=== PATIENT | male | born 1975 | race African-American/Black ===

== ENCOUNTER 2016-11-28 23:01 | Emergency (ER) | payer SELFPAY ==
[~2016-11-28] VITALS: Ht 188 cm; Wt 117.9 kg
--- NOTE | 2016-11-28 23:07 | PHYS DOC ---
Adult General Chief Complaint Chief Complaint: INSECT BITE HPI HPI Patient is a 41 year old -[place] male who presents with with complaints. States he gets stung by bees 2 days ago on 3 different spots one on his left ankle left elbow left back. He states today became nauseated and started around 11 AM he's vomited 4 times and felt like he had fevers and chills. He denies any constipation diarrhea, dysuria. He does smoke cigarettes and has been coughing up some white sputum. He denies any shortness of breath. He also complains about scratchy sore throat. He denies any changes in his voice or trismus. He does admit smoking one pack per day for the last 20 years. According to his josy when the area from bed he was having a fever so she gave him Benadryl for his bee stings and some Advil. This is approximately one hour ago they receive these meds. Review of Systems Review of Systems Constitutional: Denies fever or chills [] Eyes: Denies change in visual acuity, redness, or eye pain [] HENT: Denies nasal congestion or sore throat [] Respiratory: Denies cough or shortness of breath [] Cardiovascular: No additional information not addressed in HPI [] GI: Denies abdominal pain, , bloody stools or diarrhea, positive for nausea, vomiting : Denies dysuria or hematuria [] Musculoskeletal: Denies back pain or joint pain [] Integument: Denies rash or skin lesions [] Neurologic: Denies headache, focal weakness or sensory changes [] Endocrine: Denies polyuria or polydipsia [] Current Medications Current Medications Current Medications Medications (Trade) Dose Ordered Sig/Daquan Start Time Stop Time Status Last Admin Dose Admin Acetaminophen (Tylenol) 1,000 mg 1X ONCE 11/29/16 00:00 11/29/16 00:01 UNV Ondansetron HCl (Zofran) 4 mg 1X ONCE 11/28/16 23:45 11/28/16 23:46 DC Sodium Chloride 1,000 ml @ 1,000 mls/hr 1X ONCE 11/29/16 00:15 11/29/16 00:15 DC Allergies Allergies Physical Exam Physical Exam Constitutional: Well developed, well nourished, no acute distress, non-toxic appearance. [] HENT: Normocephalic, atraumatic, bilateral external ears normal, oropharynx moist, no oral exudates, nose normal. [] Eyes: PERRLA, EOMI, conjunctiva normal, no discharge. [] Neck: Normal range of motion, no tenderness, supple, no stridor. [] Cardiovascular:Heart rate regular rhythm, no murmur [] Lungs & Thorax: Bilateral breath sounds clear to auscultation [] Abdomen: Bowel sounds normal, soft, no tenderness, no masses, no pulsatile masses. [] Skin: Warm, dry, no erythema, 2 cm erythematous area from bee sting on his left medial ankle, left lateral elbow, left posterior chest wall Back: No tenderness, no CVA tenderness. [] Extremities: No tenderness, no cyanosis, no clubbing, ROM intact, no edema. [] Neurologic: Alert and oriented X 3, normal motor function, normal sensory function, no focal deficits noted. [] Psychologic: Affect normal, judgement normal, mood normal. [] Current Patient Data Vital Signs Vital Signs Date Time Temp Pulse Resp B/P (MAP) Pulse Ox O2 Delivery O2 Flow Rate FiO2 11/28/16 23:17 100.2 130 22 159/100 (119) 97 Room Air 100.2 Lab Values Laboratory Tests Test 11/28/16 11:59 11/29/16 00:25 White Blood Count 11.3 x10^3/uL (4.0-11.0) H Red Blood Count 5.12 x10^6/uL (4.30-5.70) Hemoglobin 15.0 g/dL (13.0-17.5) Hematocrit 45.6 % (39.0-53.0) Mean Corpuscular Volume 89 fL (79-100) Mean Corpuscular Hemoglobin 29 pg (25-35) Mean Corpuscular Hemoglobin Concent 33 g/dL (31-37) Red Cell Distribution Width 13.4 % (11.5-14.5) Platelet Count 213 x10^3/uL (140-400) Neutrophils (%) (Auto) 85 % (31-73) H Lymphocytes (%) (Auto) 6 % (24-48) L Monocytes (%) (Auto) 7 % (0-9) Eosinophils (%) (Auto) 3 % (0-3) Basophils (%) (Auto) 0 % (0-3) Neutrophils # (Auto) 9.5 x10^3uL (1.8-7.7) H Lymphocytes # (Auto) 0.6 x10^3/uL (1.0-4.8) L Monocytes # (Auto) 0.8 x10^3/uL (0.0-1.1) Eosinophils # (Auto) 0.3 x10^3/uL (0.0-0.7) Basophils # (Auto) 0.0 x10^3/uL (0.0-0.2) Prothrombin Time 11.8 SEC (11.7-14.0) Prothrombin Time INR 0.9 (0.8-1.1) Sodium Level 139 mmol/L (136-145) Potassium Level 4.1 mmol/L (3.5-5.1) Chloride Level 102 mmol/L (98-107) Carbon Dioxide Level 29 mmol/L (21-32) Anion Gap 8 (6-14) Blood Urea Nitrogen 12 mg/dL (8-26) Creatinine 1.2 mg/dL (0.7-1.3) Estimated GFR (Cockcroft-Gault) 81.1 Glucose Level 102 mg/dL (70-99) H Calcium Level 9.2 mg/dL (8.5-10.1) Magnesium Level 1.7 mg/dL (1.8-2.4) L Total Bilirubin 0.6 mg/dL (0.2-1.0) Direct Bilirubin 0.1 mg/dL (0.0-0.2) Aspartate Amino Transferase (AST) 26 U/L (15-37) Alanine Aminotransferase (ALT) 40 U/L (16-63) Alkaline Phosphatase 86 U/L (46-116) Creatine Kinase 474 U/L (39-308) H Creatine Kinase MB (Mass) 1.8 ng/mL (0.0-3.6) Creatine Kinase MB Relative Index 0.4 % (0-4) KO-Fpm-U-Type Natriuretic Peptide 19 pg/mL (0-124) Total Protein 7.5 g/dL (6.4-8.2) Albumin 4.0 g/dL (3.4-5.0) Lipase 89 U/L (73-393) Urine Collection Type Unknown Urine Color Yellow Urine Clarity Clear Urine pH 7.5 Urine Specific Campbell <=1.005 Urine Protein Negative mg/dL (NEG-TRACE) Urine Glucose (UA) Negative mg/dL (NEG) Urine Ketones (Stick) Negative mg/dL (NEG) Urine Blood Negative (NEG) Urine Nitrite Negative (NEG) Urine Bilirubin Negative (NEG) Urine Urobilinogen Dipstick 0.2 mg/dL (0.2 mg/dL) Urine Leukocyte Esterase Negative (NEG) Urine RBC 0 /HPF (0-2) Urine WBC 0 /HPF (0-4) Urine Squamous Epithelial Cells None /LPF Urine Bacteria 0 /HPF (0-FEW) Urine Mucus Slight /LPF Urine Opiates Screen Neg (NEG) Urine Methadone Screen Neg (NEG) Urine Barbiturates Neg (NEG) Urine Phencyclidine Screen Pos (NEG) Urine Amphetamine/Methamphetamine Neg (NEG) Urine Benzodiazepines Screen Neg (NEG) Urine Cocaine Screen Neg (NEG) Urine Cannabinoids Screen Pos (NEG) Urine Ethyl Alcohol Neg (NEG) Laboratory Tests 11/28/16 11:59 Laboratory Tests 11/28/16 11:59 EKG EKG [] Radiology/Procedures Radiology/Procedures View chest x-ray did not show any focal consolidations, bony abnormalities, pneumothorax, as interpreted by me. Impressions: Fever PCP abuse Marijuana abuse Course & Med Decision Making Course & Med Decision Making Pertinent Labs and Imaging studies reviewed. (See chart for details) Upon arrival patient's initial labs show pulse of 130 however when I examined him his heart rate was 97. His strep throat negative, labs do not show any acute abnormalities. Urine is also negative except for his urine drug screen which is positive for marijuana and PCP. He likely has a viral syndrome or bronchitis however with his vomiting is likely more viral. We'll send home with Zofran and this is having some sputum production will also send a Z-Dion. Return precautions given. He is agreeable plan is being discharged in stable condition this time. Dragon Disclaimer Dragon Disclaimer This electronic medical record was generated, in whole or in part, using a voice recognition dictation system. Departure Departure Impression: Primary Impression: Nausea & vomiting Disposition: 01 HOME, SELF-CARE Patient Instructions: Fever, Adult Additional Instructions: Your fever improved with Tylenol. This is likely a virus. Your chest x-ray did not show any signs of infection, your strep throat was negative. Your being discharged home and can take azithromycin for the next 5 days. Please follow instructions on the prescription. He can also take Zofran which is an oral dissolvable tablet of the medicine no help control your nausea. You should follow-up with primary care physician within the next week. Return ER if you have uncontrolled fevers, shortness of breath, uncontrolled nausea vomiting or other concerns. Can take Tylenol as instructed on the bottle for fevers. Scripts Ondansetron (ZOFRAN ODT) 4 Mg Tab.rapdis 1 TAB SL Q8HRS, #8 TAB Prov: GOMEZ PRIETO MD 11/29/16 Azithromycin (AZITHROMYCIN TABLET) 250 Mg Tablet 1 PKG PO UD, #6 TAB Prov: GOMEZ PRIETO MD 11/29/16 Problem Qualifiers Primary Impression: Nausea & vomiting Vomiting type: unspecified Vomiting Intractability: non-intractable Qualified Codes: R11.2 - Nausea with vomiting, unspecified GOMEZ PRIETO MD Nov 28, 2016 23:07
[2016-11-28 23:17] VITALS: BP 159/100
[2016-11-28] MEDS ORDERED: IV NORMAL SALINE 1000ML BAG 1,000 ML IV ONE (23:45)
[2016-11-28] MEDS ORDERED: ONDANSETRON PF 4 MG/2 ML VIAL. IV ONE (23:45)
[2016-11-29 00:06] LABS: BASO % 0 % (0-3); EOS % 3 % (0-3); HEMATOCRIT 45.6 % (39.0-53.0); LYMPH # 0.6 x10^3/uL (1.0-4.8); LYMPH % 6 % (24-48); MEAN CORPUSCULAR HEMOGLOBIN 29 pg (25-35); MEAN CORPUSCULAR HGB CONC 33 g/dL (31-37); MEAN CORPUSCULAR VOLUME 89 fL (79-100); MONO % 7 % (0-9); NEUT % 85 % (31-73); PLATELET COUNT 213 x10^3/uL (140-400); RED BLOOD COUNT 5.12 x10^6/uL (4.30-5.70); RED CELL DISTRIBUTION WIDTH 13.4 % (11.5-14.5); WHITE BLOOD COUNT 11.3 x10^3/uL (4.0-11.0)
[2016-11-29 00:12] LABS: INR 0.9 (0.8-1.1); PROTHROMBIN TIME PATIENT 11.8 SEC (11.7-14.0)
[2016-11-29 00:14] LABS: CALCIUM 9.2 mg/dL (8.5-10.1); CREATININE 1.2 mg/dL (0.7-1.3); GFR 81.1; POTASSIUM 4.1 mmol/L (3.5-5.1)
[2016-11-29] MEDS ORDERED: IV NORMAL SALINE 1000ML BAG 1,000 ML IV ONE (00:15)
[2016-11-29 00:20] LABS: DIRECT BILIRUBIN 0.1 mg/dL (0.0-0.2); MAGNESIUM 1.7 mg/dL (1.8-2.4); TOTAL BILIRUBIN 0.6 mg/dL (0.2-1.0); TOTAL PROTEIN 7.5 g/dL (6.4-8.2)
[2016-11-29] MEDS ORDERED: AZIT250T6 PO (00:24)
[2016-11-29 00:29] LABS: CKMB MASS 1.8 ng/mL (0.0-3.6)
[2016-11-29 00:35] LABS: BILIRUBIN,URINE NEGATIVE (NEG); GLUCOSE,URINE NEGATIVE (NEG); NITRITE,URINE NEGATIVE (NEG); PH,URINE 7.5; PROTEIN,URINE NEGATIVE (NEG-TRACE); UROBILINOGEN,URINE 0.2 mg/dL (0.2 mg/dL)
[2016-11-29 00:40] LABS: BACTERIA,URINE 0 /HPF (0-FEW); BARBITURATES NEG (NEG); BENZODIAZEPINES NEG (NEG); CANNABINOIDS POS (NEG); COCAINE NEG (NEG); METHADONE NEG (NEG); OPIATES NEG (NEG); PHENCYCLIDINE POS (NEG); RBC,URINE 0 /HPF (0-2); WBC,URINE 0 /HPF (0-4)
[2016-11-29] MEDS ORDERED: ONDA4TAB10 SL (00:42)
[2016-11-29] MEDS ORDERED: ACETAMINOPHEN 500 MG TABLET PO ONE (01:00)
--- NOTE | 2016-11-29 07:21 | RAD ---
Exam performed: One view chest. Indication: fever Date of Service: 11/29/2016 1:22 AM Comparison: None available. Single AP upright portable view chest findings: Cardiomediastinal silhouette is within limits of normal. No acute infiltrates, effusion or pneumothorax is detected. The bony structures are normal. Impression: No acute cardiopulmonary process is detected.
[2016-11-29 09:19] LABS: NEGATIVE OBC STREP NEG; POSITIVE OBC STREP POS
== END 2016-11-29 01:18 | disposition home or self-care (01) ==
LOC: ER 23:01
DX: R11.2 Nausea with vomiting, unspecified (principal); J02.9 Acute pharyngitis, unspecified; F17.210 Nicotine dependence, cigarettes, uncomplicated; F12.10 Cannabis abuse, uncomplicated; F16.10 Hallucinogen abuse, uncomplicated
CPT/HCPCS: 36415; 71010; 80048; 80076; 80307; 81001; 82553; 83690; 83735; 83880; 85025; 85610; 87070; 87880; 96361; 96374; 99285; J2405; J7030; G0479

== ENCOUNTER 2018-01-12 17:33 | Emergency (ER) | payer SELFPAY ==
[~2018-01-12] VITALS: Ht 188 cm; Wt 65.8 kg
[~2018-01-12 17:33] MED LIST: AZIT250T6 PO; ONDA4TAB10 SL
[2018-01-12 17:37] VITALS: BP 174/105
[2018-01-12] MEDS ORDERED: HYDROcodone/APAP 5/325MG 1 TAB TABLET PO ONE (17:45)
[2018-01-12] MEDS ORDERED: MORPHINE SULFATE 10 MG/ML VIAL. IM ONE (18:30)
--- NOTE | 2018-01-12 18:30 | PHYS DOC ---
Past Medical History Past Medical History: Hypertension Past Surgical History: Other Additional Past Surgical Histo: LEFT LCL Alcohol Use: Occasionally Drug Use: Marijuana Social History Narrative: PCP Adult General Chief Complaint Chief Complaint: WRIST PAIN HPI HPI Patient is a 42 year old male with history of hypertension who presents today complaining of 10 out of 10 left wrist pain that began yesterday after he fell off a 4 ft truck loading zone. Patient denies any loss of consciousness, denies hitting his head on the ground. States his pain is worse on range of motion. He is right handed. Review of Systems Review of Systems Constitutional: Denies fever or chills [] Musculoskeletal: Reports left wrist pain Integument: Denies rash or skin lesions [] Neurologic: Denies headache, focal weakness or sensory changes [] All other systems were reviewed and found to be within normal limits, except as documented in this note. Current Medications Current Medications Current Medications Medications (Trade) Dose Ordered Sig/Daquan Start Time Stop Time Status Last Admin Dose Admin Acetaminophen/ Hydrocodone Bitart (Lortab 5/325) 2 tab 1X ONCE 01/12/18 17:45 01/12/18 17:46 DC 01/12/18 18:06 2 TAB Morphine Sulfate (Morphine Sulfate) 5 mg 1X ONCE 01/12/18 18:30 01/12/18 18:32 DC 01/12/18 18:41 5 MG Allergies Allergies Allergies Coded Allergies Type Severity Reaction Last Updated Verified No Known Drug Allergies 11/29/16 No Physical Exam Physical Exam Constitutional: Well developed, well nourished, no acute distress, non-toxic appearance. [] Skin: Warm, dry, no erythema, no rash. [] Back: No tenderness, no CVA tenderness. [] Extremities: Left wrist appears obviously deformed. Moderate soft tissue swelling noted around the wrist. Tenderness throughout to the ventral aspect of the wrist. Full range of motion to the left fingers. Limited range of motion to the left wrist due to pain. Adequate radial, medial, ulnar sensation to the left upper extremity. +2 left radial pulse. Cap refill less than 2 seconds and left fingers. Neurologic: Alert and oriented X 3, normal motor function, normal sensory function, no focal deficits noted. [] Psychologic: Affect normal, judgement normal, mood normal. [] Current Patient Data Vital Signs Vital Signs Date Time Temp Pulse Resp B/P (MAP) Pulse Ox O2 Delivery O2 Flow Rate FiO2 01/12/18 18:41 99 Room Air 01/12/18 17:37 99.0 95 20 174/105 (128) 99.0 EKG EKG [] Radiology/Procedures Radiology/Procedures [] Course & Med Decision Making Course & Med Decision Making Pertinent Labs and Imaging studies reviewed. (See chart for details) This is a 42-year-old male patient presenting to the ED today with right wrist pain status post falling yesterday. Left wrist x-rays interpreted by Dr. Ravi were noted for distal radius fracture. Patient was placed in a volar splint by the pyrotechnist, neurovascular exam done by me is intact, ice elevation encouraged. Discharged with hydrocodone and diclofenac. Follow-up with orthopedic doctor by calling the office tomorrow to set up a follow-up appointment. Dragon Disclaimer Dragon Disclaimer This electronic medical record was generated, in whole or in part, using a voice recognition dictation system. Departure Departure Impression: Primary Impression: Distal radius fracture, left Disposition: 01 HOME, SELF-CARE Condition: STABLE Referrals: NO PCP (PCP) IAN WARD II, MD Call his office tomorrow and set up a follow up appointment Patient Instructions: Radius Fracture with [facility] Additional Instructions: You were evaluated in the emergency room and noted to have left wrist fracture. We put in a splint. Ice elevate the extremity. Take the pain medicine prescribed as needed for pain. Follow-up with the orthopedic doctor, contact his office tomorrow and set up a follow-up appointment. Scripts Diclofenac Sodium (DICLOFENAC SODIUM) 50 Mg Tablet.dr 1 TAB PO BID, #30 TAB 0 Refills Prov: DANGELO JORDAN APRN 01/12/18 Hydrocodone/Apap 5-325 (NORCO 5-325 TABLET) 1 Each Tablet 1-2 TAB PO Q4-6HRS, #20 TAB Prov: DANGELO JORDAN APRN 01/12/18 Attending Co-Sign Attending Co-Sign The patient was not seen by me. The [facility] chart was reviewed. I agree with the plan of care. Problem Qualifiers Primary Impression: Distal radius fracture, left Encounter type: initial encounter Fracture type: closed Fracture morphology : unspecified fracture morphology Qualified Codes: S52.502A - Unspecified fracture of the lower end of left radius, initial encounter for closed fracture DANGELO JORDAN APRN Jan 12, 2018 18:30 SHAWNA RAVI MD Jan 14, 2018 14:51
[2018-01-12] MEDS ORDERED: DICL50TA4 PO (18:49)
[2018-01-12] MEDS ORDERED: HYDR-971 PO (18:49)
--- NOTE | 2018-01-12 18:57 | RAD ---
EXAM: LEFT WRIST 3 VIEWS. HISTORY: Left wrist pain and swelling after a fall. COMPARISON: None. FINDINGS: There is a comminuted, intra-articular nondisplaced fracture of the distal radius. A sagittally oriented fracture line appears to intersect the lunate fossa. Radiocarpal and intercarpal joint spaces and alignment are maintained. Soft tissue swelling is noted. There is no ulnar styloid fracture. IMPRESSION: 1. Comminuted intra-articular nondisplaced fracture of the distal radius. Electronically signed by: Emmy Parr MD (01/12/2018 6:53 PM) [facility]
== END 2018-01-12 18:55 | disposition home or self-care (01) ==
LOC: ER 17:33
DX: S52.572A Other intraarticular fracture of lower end of left radius, initial encounter for closed fracture (principal); W17.89XA Other fall from one level to another, initial encounter; Y93.89 Activity, other specified; Y92.89 Other specified places as the place of occurrence of the external cause; Y99.8 Other external cause status; I10 Essential (primary) hypertension
CPT/HCPCS: 29125; 73110; 96372; 99284; J2270

== ENCOUNTER 2018-01-14 13:02 | Emergency (ER) | payer SELFPAY ==
[~2018-01-14 13:02] MED LIST changes: +DICL50TA4 PO; +HYDR-971 PO
== END 2018-01-14 13:17 ==
LOC: ER 13:02
DX: M25.539 Pain in unspecified wrist (principal); Z53.21 Procedure and treatment not carried out due to patient leaving prior to being seen by health care provider

== ENCOUNTER 2018-01-18 10:05 | Emergency (ER) | payer SELFPAY ==
[~2018-01-18] VITALS: Ht 188 cm; Wt 113.4 kg
[2018-01-18 10:12] VITALS: BP 161/100
--- NOTE | 2018-01-18 15:35 | PHYS DOC ---
Past Medical History Past Medical History: Hypertension Past Surgical History: Other Additional Past Surgical Histo: LEFT LCL Additional Information: 1 PPD Alcohol Use: Occasionally Drug Use: Marijuana Adult General Chief Complaint Chief Complaint: WRIST PAIN HPI HPI Patient is a 42 year old male who presents with a request for a new prescription for narcotic pain medication. The patient states that he was here a week ago and diagnosed with a wrist fracture. He states that he lost his prescription in his friend's car and never got it filled. He is wanting a new prescription for narcotics. He has not followed up with orthopedics. Review of Systems Review of Systems Constitutional: Denies fever or chills [] Respiratory: Denies cough or shortness of breath [] Cardiovascular: No additional information not addressed in HPI [] Musculoskeletal: See history of present illness Integument: Denies rash or skin lesions [] Neurologic: Denies headache, focal weakness or sensory changes [] Endocrine: Denies polyuria or polydipsia [] All other systems were reviewed and found to be within normal limits, except as documented in this note. Allergies Allergies Allergies Coded Allergies Type Severity Reaction Last Updated Verified No Known Drug Allergies 11/29/16 No Physical Exam Physical Exam Constitutional: Well developed, well nourished, no acute distress, non-toxic appearance. [] Cardiovascular:Heart rate regular rhythm, no murmur [] Lungs & Thorax: Bilateral breath sounds clear to auscultation [] Abdomen: Bowel sounds normal, soft, no tenderness, no masses, no pulsatile masses. [] Skin: Warm, dry, no erythema, no rash. [] Back: No tenderness, no CVA tenderness. [] Extremities: Unable to assess the patient's wrist. He is currently wearing a splint Neurologic: Alert and oriented X 3, normal motor function, normal sensory function, no focal deficits noted. [] Psychologic: Affect normal, judgement normal, mood normal. [] Current Patient Data Vital Signs Vital Signs Date Time Temp Pulse Resp B/P (MAP) Pulse Ox O2 Delivery O2 Flow Rate FiO2 01/18/18 10:12 98.5 99 20 161/100 (120) 98 Room Air 98.5 EKG EKG [] Radiology/Procedures Radiology/Procedures [] Course & Med Decision Making Course & Med Decision Making Pertinent Labs and Imaging studies reviewed. (See chart for details) []I explained to the patient that I would not give a new narcotic prescription that is over a week old. I did ask him what he had been taking for pain over the past week and he stated he was taking Tylenol. I suggested that he add in ibuprofen with the Tylenol. He is to follow-up with orthopedics. He is in agreement with this plan. Dragon Disclaimer Dragon Disclaimer This electronic medical record was generated, in whole or in part, using a voice recognition dictation system. Departure Departure Impression: Primary Impression: Encounter for medication refill Additional Impression: Distal radius fracture, left Disposition: 01 HOME, SELF-CARE Condition: STABLE Additional Instructions: Continue to take ibuprofen or Tylenol for pain. Follow-up with orthopedics for further evaluation and management of your fracture. Problem Qualifiers CASA FOSTER APRN Jan 18, 2018 15:35
== END 2018-01-18 10:33 | disposition home or self-care (01) ==
LOC: ER 10:05
DX: S52.592D Other fractures of lower end of left radius, subsequent encounter for closed fracture with routine healing (principal); Z76.0 Encounter for issue of repeat prescription; I10 Essential (primary) hypertension; F17.200 Nicotine dependence, unspecified, uncomplicated; X58.XXXD Exposure to other specified factors, subsequent encounter
CPT/HCPCS: 99284

== ENCOUNTER 2018-03-03 11:08 | Emergency (ER) | payer SELFPAY ==
[~2018-03-03] VITALS: Ht 188 cm; Wt 113.4 kg
[~2018-03-03 11:08] MED LIST changes: +HYDR-3164 PO; -HYDR-971 PO
[2018-03-03 11:45] VITALS: BP 181/104
[2018-03-03] MEDS ORDERED: PRED50TA PO (11:52)
[2018-03-03] MEDS ORDERED: ORPH100T PO (11:52)
[2018-03-03] MEDS ORDERED: IBUP-1007 PO (11:52)
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
[2018-03-03] MEDS ORDERED: ORPHENADRINE CITRATE 60 MG/2 ML VIAL. IM ONE (12:00)
[2018-03-03] MEDS ORDERED: KETOROLAC 60 MG/2 ML INJ. IM ONE (12:00)
== END 2018-03-03 12:15 | disposition home or self-care (01) ==
LOC: ER 11:08
DX: M54.42 Lumbago with sciatica, left side (principal); I10 Essential (primary) hypertension; V43.93XA Unspecified car occupant injured in collision with pick-up truck in traffic accident, initial encounter; Y93.89 Activity, other specified; Y92.89 Other specified places as the place of occurrence of the external cause; Y99.8 Other external cause status
CPT/HCPCS: 96372; 99283; J1885; J2360